=== PATIENT | female | born 1970 | race Two or more races ===

== ENCOUNTER 2017-03-06 11:22 | Outpatient (CLI) | payer MEDICARE, MEDICAID ==
[2017-03-06 13:20] LABS: ALANINE AMINOTRANSFERASE 24 U/L (12-78); ASPARTATE AMINO TRANSFERASE 26 U/L (15-37); BILIRUBIN,DIRECT < 0.1 MG/DL (0.0-0.3); TOTAL PROTEIN 8.2 G/DL (6.4-8.2)
== END 2017-03-06 12:00 | disposition home or self-care (01) ==
LOC: PAN 11:22
DX: B19.10 Unspecified viral hepatitis B without hepatic coma (principal)
CPT/HCPCS: 36415; 80076; 82105